=== PATIENT | male | born 1995 | race Caucasian/White ===

== ENCOUNTER 2023-08-29 07:21 | Emergency (ER) | payer BC, SELFPAY ==
[2023-08-29 07:31] VITALS: BP 180/90; PULSE 84; TEMP 36.8; O2SAT 96; BMI 44.3
[2023-08-29 08:13] VITALS: BP 160/80; PULSE 80; O2SAT 98
--- NOTE | 2023-08-29 09:21 | ED_ITS ---
HPI HPI - General Adult General Chief complaint: Eye Problems Stated complaint: EYE PAIN Time Seen by Provider: 08/29/23 07:36 History of Present Illness HPI narrative: Pt is a 28yo male who has eye swelling around the left eye, and poison jyotsna for the past 2-3 days. Pt was working in the yard Friday and Friday, may have been exposed to poison jyotsna or some irritant. Pt has cloudy vision, swelling to left eye, rash to left check, around left eye. no orbital cellulitis, rash not arms, left greater than right, also to left buttock large area, no MM involved. no sob, anioedema, swollen throat or any other difficulty breathting. pt says some drainage and crusty discharge to the left eye this am. pt went to urgent care yesterday and had shot of kenalog. no other OTC products used besides 1 dose of claritin. y REVIEW OF SYSTEMS: Unless otherwise stated in this report the patient's positive and negative responses for review of systems for constitutional, eyes, ENT, cardiovascular, respiratory, gastrointestinal, neurological, , musculoskeletal, and integument systems and related systems to the presenting problem are either stated in the history of present illness or were not pertinent or were negative for the symptoms and/or complaints related to the presenting medical problem. vital signs reviewed and patient is not hypoxic. General: The patient appears well and in no apparent distress. Patient is resting comfortably on cart. Not toxic, lethargic, or listless. Skin: Warm, dry, no pallor noted. There is no rash noted. small vesicles to left arm, no secondary signs of infection, mild to mod swelling around the left eye, to upper and lower eyelid, edema, no infection of preseptal or postseptal cellulitis. no reddness to left eye, EOM with no pain Head: Normocephalic, atraumatic Eye: Normal conjunctiva, no drainage, EOMI. PERRL. Patient had no redness to bilateral conjunctiva. Patient did have some mild to moderate swelling around the left eye, no signs of orbital cellulitis. Equal ocular motion intact with no difficulty. No drainage noted from the left eyeball. No foreign bodies noted. Upper and lower eyelids were inverted, no foreign bodies noted. Ears, Nose, Mouth, and Throat: oral mucosa is moist. Nares patent. Mouth without vesicles. Ear canals patent. Tm's without Erythema Cardiovascular: Regular Rate and Rhythm, no murmurs, gallops, or rubs Respiratory: Patient is in no distress, no accessory muscle use, lungs are clear to auscultation, no wheezing, rales or rhonchi Back: non-tender, patient has a large area of raised urticaria/rash/contact dermatitis to his left upper buttock, no signs of secondary infection and petechiae, purpura, no mucous membrane involvement GI: Soft, no tenderness Musculoskeletal: The patient has full range of motion of all extremities and joints with no difficulty. Patient has no motor, no sensory deficits. Neurological: A&O x4, normal speech, no focal neurological deficits. Psychiatric: Cooperative Related Data Previous Rx's ?Medication ?Instructions ?Recorded hydroxyzine HCl 50 mg tablet 50 mg PO TID PRN itching #10 tabs 08/29/23 tobramycin 0.3 % eye drops 2 drp ophthalmic (eye) Q4H 7 days 08/29/23 #5 mL Opioid HPI Opioid Management Most Recent Opioid Data: Last Pain Scale 4 08/29/23 07:42 Exam Constitutional Vital Signs, click to edit/add: Last Vital Signs Temp 98.2 F 08/29/23 07:31 Pulse 80 08/29/23 08:13 Resp 18 08/29/23 08:13 BP 160/80 H 08/29/23 08:13 Pulse Ox 98 08/29/23 08:13 O2 Del Method Room Air 08/29/23 07:31 Course Vital Signs Vital signs: Vital Signs Temperature 98.2 F 08/29/23 07:31 Pulse Rate 84 08/29/23 07:31 Respiratory Rate 18 08/29/23 07:31 Blood Pressure 180/90 H 08/29/23 07:31 Pulse Oximetry 96 08/29/23 07:31 Oxygen Delivery Method Room Air 08/29/23 07:31 Temperature 98.2 F 08/29/23 07:31 Pulse Rate 80 08/29/23 08:13 Respiratory Rate 18 08/29/23 08:13 Blood Pressure 160/80 H 08/29/23 08:13 Pulse Oximetry 98 08/29/23 08:13 Oxygen Delivery Method Room Air 08/29/23 07:31 Medical Decision Making MDM Narrative Medical decision making narrative: see visual acuity pt sent home with rx for tobrex and vistaril education on DC papers no infection or signs of orbital cellulitis Discharge Plan Discharge Stand Alone Forms: Work/School Release, Portal Instructions Chief Complaint: Eye Problems Clinical Impression: Eye swelling, left, Conjunctivitis of left eye, Contact dermatitis Patient Disposition: Home, Self-Care Time of Disposition Decision: 08:04 Condition: Fair Prescriptions / Home Meds: New tobramycin 0.3 % drops 2 drp ophthalmic (eye) Q4H 7 Days Qty: 5 0RF hydroxyzine HCl 50 mg tablet 50 mg PO TID PRN (Reason: itching) Qty: 10 0RF Print Language: Grenadian Instructions: Contact Dermatitis (ED), Eye Pain (ED), Conjunctivitis (ED) Additional Instructions: Ust claritin or zyrtec during the day; benadryl at night time Use pepcid 20mg twice a day for next 5-7 days Use ice 20min on, 20min off for next 5-7 days Referrals: LARRY SZYMANSKI [Physician] - 1 week Discharge Date/Time: 08/29/23 08:14
== END 2023-08-29 08:14 | disposition home or self-care (01) ==
PROVIDERS: Emergency Provider Emergency Medicine; PCP Family Medicine
DX: H10.9 Unspecified conjunctivitis (principal); L25.9 Unspecified contact dermatitis, unspecified cause; H57.89 Other specified disorders of eye and adnexa
CPT/HCPCS: 99283